=== PATIENT | male | born 1990 | race African-American/Black ===

== ENCOUNTER 2021-07-26 14:10 | Emergency (ER) | payer OTHER ==
[~2021-07-26] VITALS: Ht 185.4 cm; Wt 89.0 kg
[2021-07-26] MEDS ORDERED: OMNI-PAC300 MG PO (17:08)
[2021-07-26 17:33] VITALS: BP 131/85
== END 2021-07-26 17:35 | disposition home or self-care (01) | DRG 605 ==
LOC: ED 14:10
PROC: 0HQFXZZ Repair Right Hand Skin, External Approach (ICD-10-PCS; principal; 2021-07-26)
DX: S61.411A Laceration without foreign body of right hand, initial encounter (principal); W26.8XXA Contact with other sharp object(s), not elsewhere classified, initial encounter